=== PATIENT | female | born 1940 | race Caucasian/White ===

== ENCOUNTER 2020-09-19 18:05 | Emergency (ER) | payer MEDICARE ==
[2020-09-19 19:44] LABS: #Lymphocytes 1.4 thou/uL (1.20-3.40); #Monocytes 0.6 thou/uL (0.11-0.59); #Neutrophils 6.3 thou/uL (1.40-6.50); %Basophils 0.4 % (0.0-1.0); %Eosinophils 0.1 % (0.0-10.0); %Lymphocytes 17.1 % (21.0-51.0); %Monocytes 6.9 % (0.0-10.0); %Neutrophils 75.5 % (42.0-75.0); Hemoglobin 14.1 g/dL (12.0-16.0); Mean Corpuscular Hemoglobin 29.5 pg (27.0-31.0); Mean Corpuscular Volume 92.4 fL (78.0-98.0); Mean Platelet Volume 6.4 fL (7.4-10.4); Platelet Count 287 thou/uL (130-400); RBC Distribution Width 13.2 % (11.5-14.5); Red Blood Cell (RBC) Count 4.79 mill/uL (4.20-5.40); White Blood Cell (WBC) Count 8.4 thou/uL (4.8-10.8)
[2020-09-19 20:00] LABS: Anion Gap 15 mmol/L (10-20); BUN (Urea Nitrogen) 23 mg/dL (9.8-20.1); Bilirubin, Total 0.3 mg/dL (0.2-1.2); Calc. Creatinine Clearance 0 mL/min (70-130); Calcium 10.5 mg/dL (7.8-10.44); Carbon Dioxide 27 mmol/L (23-31); Chloride 103 mmol/L (98-107); Glucose 92 mg/dL (83-110); Potassium 3.8 mmol/L (3.5-5.1); Sodium 141 mmol/L (136-145)
[2020-09-19 20:01] LABS: ALT (SGPT) 27 U/L (8-55); AST (SGOT) 20 U/L (5-34); Albumin 4.1 g/dL (3.4-4.8); Alkaline Phosphatase 74 U/L (40-110); Globulin 2.6 g/dL (2.4-3.5); Protein, Total 6.7 g/dL (5.8-8.1)
[2020-09-19] MEDS ORDERED: Aspirin Chewable 81 MG TAB ONE (21:16)
== END 2020-09-19 21:28 | disposition home or self-care (01) ==
LOC: BURERS 18:05
DX: I10 Essential (primary) hypertension (principal); Z79.899 Other long term (current) drug therapy
CPT/HCPCS: 36415; 70450; 80053; 84484; 85025; 93005

== ENCOUNTER 2020-10-30 17:52 | Emergency (ER) | payer MEDICARE ==
[2020-10-30] MEDS ORDERED: Dexamethasone 10 MG/ML VIAL ONE (18:18)
[2020-10-31 16:16] LABS: SARS-CoV-2 PCR by NAA Not Detected (NotDetected)
== END 2020-10-30 18:48 | disposition home or self-care (01) ==
LOC: BURERS 17:52
DX: R05 Cough (principal); I10 Essential (primary) hypertension; Z20.822 Contact with and (suspected) exposure to COVID-19; Z79.899 Other long term (current) drug therapy
CPT/HCPCS: 71046; 94640; 99284; U0003; U0005; 87635; J1100; J7620

== ENCOUNTER 2022-03-10 17:39 | Emergency (ER) | payer MEDICARE ==
[2022-03-10 18:07] LABS: #Basophils 0.1 thou/uL (0.0-0.2); #Eosinphils 0.1 thou/uL (0.0-0.7); #Lymphocytes 1.8 thou/uL (1.20-3.40); #Monocytes 0.3 thou/uL (0.11-0.59); #Neutrophils 5.4 thou/uL (1.40-6.50); %Basophils 1.1 % (0.0-1.0); %Eosinophils 1.9 % (0.0-10.0); %Lymphocytes 23.3 % (21.0-51.0); %Monocytes 4.4 % (0.0-10.0); %Neutrophils 69.4 % (42.0-75.0); Hemoglobin 8.6 g/dL (12.0-16.0); Mean Corpuscular HGB CONC 33.3 g/dL (32.0-36.0); Mean Corpuscular Hemoglobin 30.2 pg (27.0-31.0); Mean Corpuscular Volume 90.5 fL (78.0-98.0); Platelet Count 310 thou/uL (130-400); RBC Distribution Width 14.6 % (11.5-14.5); Red Blood Cell (RBC) Count 2.85 mill/uL (4.20-5.40); White Blood Cell (WBC) Count 7.8 thou/uL (4.8-10.8)
[2022-03-10 18:25] LABS: ALT (SGPT) 21 U/L (8-55); AST (SGOT) 18 U/L (5-34); Alkaline Phosphatase 62 U/L (40-110); Anion Gap 15 mmol/L (10-20); BUN (Urea Nitrogen) 25 mg/dL (9.8-20.1); Bilirubin, Total Less than 0.2 mg/dL (0.2-1.2); Calc. Creatinine Clearance 0 mL/min (70-130); Calcium 10.3 mg/dL (7.8-10.44); Carbon Dioxide 23 mmol/L (23-31); Chloride 106 mmol/L (98-107); Estimated GFR 63; Globulin 2.7 g/dL (2.4-3.5); Glucose 105 mg/dL (83-110); Potassium 3.6 mmol/L (3.5-5.1); Protein, Total 6.7 g/dL (5.8-8.1); Sodium 140 mmol/L (136-145)
== END 2022-03-10 20:01 | disposition short-term general hospital (02) ==
LOC: BURERS 17:39
DX: R07.9 Chest pain, unspecified (principal); R94.31 Abnormal electrocardiogram [ECG] [EKG]; I10 Essential (primary) hypertension
CPT/HCPCS: 71045; 80053; 83880; 84484; 85025; 93005

== ENCOUNTER 2022-05-29 12:52 | Outpatient (CLI) | payer MEDICARE | END 2022-05-29 12:53 | disposition home or self-care (01) | LOC: BURRAD 12:52 | PROVIDERS: ATTEND Registered Nurse Hospice | DX: M79.89 Other specified soft tissue disorders (principal) ==

== ENCOUNTER 2023-06-19 13:48 | Emergency (ER) | payer OTHER, MEDICARE ==
[2023-06-19] MEDS ORDERED: Amoxicillin/Potassium Clav 875 MG TAB ONE (14:16)
== END 2023-06-19 14:32 | disposition home or self-care (01) ==
LOC: BURERS 13:48
DX: S81.852D Open bite, left lower leg, subsequent encounter (principal); I10 Essential (primary) hypertension; W54.0XXD Bitten by dog, subsequent encounter
CPT/HCPCS: 99283

== ENCOUNTER 2024-01-08 14:50 | Outpatient (CLI) | payer MEDICARE | END 2024-01-08 14:51 | disposition home or self-care (01) | LOC: BURRAD 14:50 | PROVIDERS: ATTEND Specialist | DX: M54.2 Cervicalgia (principal); M47.812 Spondylosis without myelopathy or radiculopathy, cervical region | CPT/HCPCS: 72050 ==